=== PATIENT | male | born 1950 | race Caucasian/White ===

== ENCOUNTER 2016-07-05 05:48 | Emergency (ER) | payer MEDICARE, BC ==
[2016-07-05] MEDS ORDERED: MORPHINE 4 MG/ML SYR ONE (07:03)
[2016-07-05] MEDS ORDERED: Meclizine HCl 25 MG TAB ONE (07:49)
== END 2016-07-05 08:53 | disposition home or self-care (01) ==
LOC: ER 05:48
CPT/HCPCS: 36415 ×2; 70450 ×2; 71010 ×2; 72072 ×2; 72100 ×2; 72125 ×2; 80053 ×2; 81001 ×2; 82553 ×2; 82947 ×2; 84484 ×2; 85025 ×2; 85610 ×2; 85730 ×2; 93005 ×2; 96372; J2270